=== PATIENT | female | born 1995 | race Caucasian/White ===

== ENCOUNTER 2017-12-19 19:51 | Emergency (ER) | payer OTHER ==
[2017-12-19 19:59] VITALS: BP 141/94
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
[2017-12-19] MEDS ORDERED: CYCLOBENZAPRINE10 M1 PO (21:16)
[2017-12-19] MEDS ORDERED: IBUPROFEN800 M1 PO (21:16)
== END 2017-12-19 21:37 ==
LOC: ERH 19:51
DX: S16.1XXA Strain of muscle, fascia and tendon at neck level, initial encounter (principal); S09.90XA Unspecified injury of head, initial encounter; V49.40XA Driver injured in collision with unspecified motor vehicles in traffic accident, initial encounter; Y92.9 Unspecified place or not applicable
CPT/HCPCS: 81025; J1885